=== PATIENT | male | born 1975 | race African-American/Black ===

== ENCOUNTER 2020-01-28 16:38 | Emergency (ER) | payer MEDICAID ==
[~2020-01-28] VITALS: Ht 182.9 cm; Wt 97.7 kg
[2020-01-28] MEDS ORDERED: IBUPROFEN 600MG TABLET PO ONE (17:30)
[2020-01-28 17:38] VITALS: BP 155/74
== END 2020-01-28 18:10 | disposition home or self-care (01) ==
LOC: ER 16:38
DX: J06.9 Acute upper respiratory infection, unspecified (principal); R05 Cough; Z87.828 Personal history of other (healed) physical injury and trauma; Z98.890 Other specified postprocedural states
CPT/HCPCS: 87804; 99283